=== PATIENT | female | born 2000 | race African-American/Black ===

== ENCOUNTER 2020-11-24 18:52 | Emergency (ER) | payer OTHER ==
[~2020-11-24] VITALS: Ht 165.1 cm; Wt 58.1 kg
== END 2020-11-24 20:53 | disposition home or self-care (01) ==
LOC: ER 18:52
DX: S02.5XXA Fracture of tooth (traumatic), initial encounter for closed fracture (principal); W18.09XA Striking against other object with subsequent fall, initial encounter; Y93.89 Activity, other specified; Y92.59 Other trade areas as the place of occurrence of the external cause; Y99.8 Other external cause status